=== PATIENT | female | born 1960 | race Hispanic/Latino ===

== ENCOUNTER → 2019-12-21 | Outpatient (CLI) | payer OTHER | END | disposition home or self-care (01) | LOC: RAH 10:45 | PROVIDERS: ATTEND Internal Medicine | DX: K31.84 Gastroparesis (principal); R14.0 Abdominal distension (gaseous) | CPT/HCPCS: 78264; A9541 ==

== ENCOUNTER → 2021-03-21 | Outpatient (CLI) | payer OTHER ==
[~2021-03-21] MED LIST: IOHEXOL 350 MG/ML 100ML INFUS..BTL IV ONE
== END | disposition home or self-care (01) ==
LOC: RAH 08:39
PROVIDERS: ATTEND Internal Medicine
DX: K59.00 Constipation, unspecified (principal)
CPT/HCPCS: 74178; Q9967

== ENCOUNTER → 2024-11-16 | Outpatient (CLI) | payer OTHER, MEDICARE ==
[2024-11-16 12:39] LABS: ALBUMIN 3.9 g/dL (3.5-5.0); BILIRUBIN,TOTAL 0.3 mg/dL (0.2-1.0); CREATININE 0.7 mg/dL (0.5-1.0); POTASSIUM 4.4 mmol/L (3.5-5.1); TOTAL PROTEIN, SERUM 7.1 g/dL (6.0-8.3)
== END | disposition home or self-care (01) ==
LOC: LAB 09:35
PROVIDERS: ATTEND Student in an Organized Health Care Education/Training Program
DX: E78.2 Mixed hyperlipidemia (principal); R07.89 Other chest pain
CPT/HCPCS: 36415; 80053; 80061

== ENCOUNTER → 2024-11-19 | Outpatient (CLI) | payer OTHER, MEDICARE ==
--- NOTE | 2024-11-19 10:16 | HMCIMG ---
CT OF THE CHEST WITH CONTRAST- CT Cardiac Angio co-interpretation This is done as part of the CT cardiac angiogram study. The interpretation of the coronary arteries will be done by manager multimedia in a separate report. History: over-read Comparison: none CT Dose Index (CTDI): 77.90 mGy Dose Length Product (DLP): 493.40 total mGy PROTOCOL: Examination is done at 2.5 millimeter volumetric acquisition after contrast administration with Isovue 370, 100 cc IV, without complications. Photography is done at 5 millimeter thick intervals for the thorax. The examination begins above the heart and therefore the lung apices are incompletely included. The rest of the left lung is included but the right lung is only included up to its middle third. The periphery of the right lung is not included in the study. FINDINGS: The visualized part of the airway is preserved. The bony and soft tissue structures of the chest wall are unremarkable. The aorta is unremarkable. No mediastinal lymphadenopathy is seen. The lung windows demonstrate no worrisome pulmonary nodules, masses or infiltrates. There is no evidence of pulmonary embolism in the visualized lung segments. The upper abdominal views are unremarkable. Impression: No significant abnormalities identified.
== END | disposition home or self-care (01) ==
LOC: RAH 08:28
PROVIDERS: ATTEND Student in an Organized Health Care Education/Training Program
DX: R07.9 Chest pain, unspecified (principal)
CPT/HCPCS: 75574; Q9967

== ENCOUNTER → 2024-12-23 | Outpatient (CLI) | payer OTHER, MEDICARE ==
--- NOTE | 2024-12-30 09:35 | HMCSR ---
APPROVED REPORT EXAM: Two-dimensional and M-mode echocardiogram with Doppler and color Doppler. INDICATION ICD: R07.9 Chest pain 2D Dimensions RVDd3.4 cmLVEF(%)51.1 (>50%)LVED Vol(simp.)66.0 mL IVSd0.7 (0.7-1.1cm)FS(%)26 %LVES Vol(simp.)30.0 mL LVDd4.3 (3.8-5.6cm)Ao Root(2D)3.2 (2.0-3.7cm)LVEF(%, simp.)55 % PWd0.7 (0.7-1.1cm)LVOT diam2.0 (1.8-2.4cm)LA ESV INDEX (BP)23.45 mL/m2 LVDs3.2 (2.5-4.0cm)IVC diam1.4 cm Aortic Valve AoV Vmax1.2 m/Balaji Peak GR5.9 mmHgLVOT Vmax0.8 m/s AoV VTI0.3 mAo Mean GR3.1 mmHgLVOT VTI0.19 m YANCI (VMAX)2.3 cm2AVA (VTI) 2.3 cm2 Mitral Valve MV E Vmax70.2 cm/sDECEL Hsas400 ms MV A Vmax83.7 cm/sP 1/2 T56 ms E/A ratio0.8MVA (PHT)4.0 cm2 MR Max PG63 mmHg TDI E/E' Zkreas86.5E/E' Bvyltuv96.3 Pulmonary Valve PV Vmax0.9 m/sPV VTI0.17 mPV Mean GR2 mmHg PV Peak GR2.9 mmHg Tricuspid Valve TR Vmax2.2 m/sRAP (EST) 3 dzTcSPVX53.1 mmHg TR Peak GR20.1 mmHg Left Ventricle The left ventricle structure and function is normal. There is normal left ventricular wall thickness. LVEF is 50-55%. The left ventricular diastolic function is normal. Right Ventricle The right ventricle is normal size. The right ventricular systolic function is normal. Atria The left atrium size is normal. The right atrium size is normal. Aortic Valve Aortic valve is trileaflet. Aortic valve leaflets are sclerotic but open well. Trace aortic regurgita tion. There is no aortic valvular stenosis. Mitral Valve The mitral valve is mildly thickened. Mitral regurgitation is trace. There is no mitral valve stenosi s. Tricuspid Valve The tricuspid valve leaflets appear normal. There is trace to mild tricuspid regurgitation. Pulmonic Valve Pulmonic valve is not well visualized. Great Vessels The aortic root is normal in size. The IVC is normal in size and collapses >50% with inspiration. Pericardium No pericardial effusion. Conclusion The left ventricle structure and function is normal. LVEF is 50-55%. The left ventricular diastolic function is normal. The right ventricle is normal size. The right ventricular systolic function is normal. The left atrium size is normal. The right atrium size is normal. There is trace to mild tricuspid regurgitation. No pericardial effusion.
== END | disposition home or self-care (01) ==
LOC: SHCH 13:12
PROVIDERS: ATTEND Student in an Organized Health Care Education/Training Program
DX: R07.9 Chest pain, unspecified (principal)
CPT/HCPCS: 93306

== ENCOUNTER → 2025-02-20 | Outpatient (CLI) | payer OTHER, MEDICARE ==
--- NOTE | 2025-02-22 10:00 | HMCSR ---
APPROVED REPORT Laterality: Bilateral Indications r09.89 Doppler Spectral Velocity Analysis PSV / EDVPSV / EDV ECA (R) 106 / cm/sECA (L) 62 / cm/s dICA (R) 53 / 23 cm/sdICA (L) 48 / 23 cm/s Malina (R) 59 / 21 cm/smICA (L) 43 / 17 cm/s pICA (R) 44 / 14 cm/spICA (L) 56 / 26 cm/s dCCA (R) 62 / 19 cm/sdCCA (L) 62 / 23 cm/s mCCA (R) 56 / 21 cm/smCCA (L) 56 / 21 cm/s pCCA (R) 80 / 17 cm/spCCA (L) 69 / 21 cm/s Subl. (R) 116 / cm/sSubl. (L) 118 / cm/s ICA/CCA 0.74ICA/CCA 0.81 Technologist Impression Minimal plaque noted in the bilateral carotids, without hemodynamic significance. Bilateral vertebral arteries appear occluded. Unclear take off of the LCCA and Left Subclavian arteries from the arch. Conclusion Minimal plaque noted in the bilateral carotids, without hemodynamic significance. Bilateral vertebral arteries appear occluded. Unclear take off of the LCCA and Left Subclavian arteries from the arch. Conclusion Minimal plaque noted in the bilateral carotids, without hemodynamic significance. Bilateral vertebral arteries appear occluded. Unclear take off of the LCCA and Left Subclavian arteries from the arch.
--- NOTE | 2025-02-22 10:07 | HMCSR ---
APPROVED REPORT Laterality: Bilateral Indications Claudication: VELOCITY AND DOPPLER WAVEFORM ANALYSIS RECORD KEEPER (R) 122.9cm/sec, Triphasic, RECORD KEEPER (L) 115.8cm/sec, Triphasic, Prof Fem Art. (R) 77.3cm/sec, Triphasic, Prof Fem Art. (L) 74.1cm/sec, Triphasic, Fem Art Prox. (R) 104.9cm/sec, Triphasic, Fem Art Prox. (L) 74.1cm/sec, Triphasic, Fem Art Mid. (R) 66.1cm/sec, Triphasic, Fem Art Mid. (L) 69.3cm/sec, Triphasic, Fem Art Dist (R) 55.5cm/sec, Triphasic, Fem Art Dist. (L) 67.7cm/sec, Triphasic, Pop Art(AK) (R) 59.5cm/sec, Triphasic, Pop Art (AK) (L) 56.3cm/sec, Triphasic, Pop Art (Fossa)(R) 57.9cm/sec, Triphasic, Pop Art (Fossa) (L) 57.1cm/sec, Triphasic, Pop Art(BK) (R) 62.8cm/sec, Triphasic, Pop Art (BK) (L) 77.5cm/sec, Triphasic, LUNCHROOM MOTHER Prox. (R) 79.9cm/sec, Triphasic, LUNCHROOM MOTHER Prox. (L) 85.6cm/sec, Triphasic, LUNCHROOM MOTHER Mid. (R) 71.8cm/sec, Triphasic, LUNCHROOM MOTHER Mid. (L) 74.2cm/sec, Triphasic, LUNCHROOM MOTHER Dist. (R) 63.6cm/sec, Triphasic, LUNCHROOM MOTHER Dist. (L) 53.0cm/sec, Triphasic, Per Art Prox. (R) 44.9cm/sec, Biphasic, Per Art Prox. (L) 43.2cm/sec, Biphasic, Per Art Mid. (R) 52.2cm/sec, Biphasic, Per Art Mid. (L) 44.9cm/sec, Biphasic, Per Art Dist. (R) 52.2cm/sec, Biphasic, Per Art Dist. (L) 44.9cm/sec, Biphasic, HOLLY Prox. (R) 77.6cm/sec, Triphasic, HOLLY Prox. (L) 75.0cm/sec, Triphasic, HOLLY Mid. (R) 58.7cm/sec, Triphasic HOLLY Mid. (L) 48.1cm/sec, Triphasic, HOLLY Dist. (R) 68.3cm/sec, Triphasic, HOLLY Dist. (L) 77.5cm/sec, Triphasic, Technologist Impression No evidence of significant arterial insufficiency of bilateral lower extremities. Conclusion No evidence of significant arterial insufficiency of bilateral lower extremities. Conclusion No evidence of significant arterial insufficiency of bilateral lower extremities.
== END | disposition home or self-care (01) ==
LOC: SHCH 10:37
PROVIDERS: ATTEND Student in an Organized Health Care Education/Training Program
DX: I65.23 Occlusion and stenosis of bilateral carotid arteries (principal); I73.9 Peripheral vascular disease, unspecified; R09.89 Other specified symptoms and signs involving the circulatory and respiratory systems
CPT/HCPCS: 93880; 93925